=== PATIENT | male | born 1950 | race Caucasian/White ===

== ENCOUNTER 2018-03-05 23:45 | Emergency (ER) | payer MEDICARE, BC ==
--- NOTE | 2018-03-05 23:47 | EDM.PDOC ---
ED HPI GENERAL MEDICAL PROBLEM - General Stated Complaint: POSSIBLE STOKE Time Seen by Provider: 03/05/18 23:47 Source of Information: Reports: Patient, EMS, Family History Limitations: Reports: No Limitations - History of Present Illness INITIAL COMMENTS - FREE TEXT/NARRATIVE: 68-year-old male brought in by ambulance after a brief episode of dysarthria, lightheadedness and weakness. This occurred after having a few drinks after supper. He needed help with walking although he did not have any asymmetric weakness in one extremity or the other. He had no noticeable facial droop or double vision. In route his symptoms seem to have resolved. He just wants to go home. Onset: Sudden (About an hour and a half ago) Severity: Moderate Associated Symptoms: Reports: No Other Symptoms - Related Data Allergies Allergy/AdvReac Type Severity Reaction Status Date / Time No Known Allergies Allergy Verified 03/05/18 23:55 Home Meds: Home Meds Lisinopril [Prinivil] 5 mg PO DAILY 03/06/18 [History] Metoprolol Succinate [Toprol Xl] 50 mg PO DAILY 03/06/18 [History] atorvaSTATin [Lipitor] 40 mg PO BEDTIME 03/06/18 [History] ED ROS GENERAL - Review of Systems Review Of Systems: See Below Constitutional: Denies: Fever, Chills, Malaise HEENT: Reports: Other (Dysarthria) Respiratory: Denies: Shortness of Breath Cardiovascular: Denies: Chest Pain, Palpitations GI/Abdominal: Denies: Abdominal Pain, Nausea, Vomiting Skin: Reports: No Symptoms Neurological: Reports: Trouble Speaking. Denies: Confusion, Dizziness, Headache Psychiatric: Reports: No Symptoms ED EXAM, GENERAL - Physical Exam Exam: See Below Exam Limited By: No Limitations General Appearance: Alert, No Apparent Distress Eye Exam: Bilateral Eye: EOMI, PERRL Head: Atraumatic, Normocephalic Neck: Supple. No: Carotid Bruit Respiratory/Chest: No Respiratory Distress, Lungs Clear Cardiovascular: Regular Rate, Rhythm Extremities: Normal Inspection Neurological: Other (No reproducible weakness of the arms or legs, grasp strength is normal, facial muscles are symmetric). No: Inattentive, Confused, Disoriented Course - Vital Signs Last Recorded V/S: Last Vital Signs Temp 97.5 F 03/05/18 23:45 Pulse 75 03/06/18 00:01 Resp 20 03/06/18 00:01 BP 141/88 H 03/06/18 00:01 Pulse Ox 95 03/06/18 00:01 - Orders/Labs/Meds Orders: Active Orders 24 hr Category Date Time Status Head wo Cont [CT] Stat Exams 03/05/18 23:47 Taken Labs: Laboratory Tests 03/06/18 03/06/18 03/06/18 Range/Units 00:10 00:10 00:10 WBC 6.3 (4.5-11.0) K/uL RBC 4.46 (4.30-5.90) M/uL Hgb 13.7 (12.0-15.0) g/dL Hct 39.8 L (40.0-54.0) % MCV 89 (80-98) fL MCH 31 (27-31) pg MCHC 34 (32-36) % Plt Count 181 (150-400) K/uL Neut % (Auto) 51 (36-66) % Lymph % (Auto) 35 (24-44) % Pope % (Auto) 12 H (2-6) % Eos % (Auto) 3 (2-4) % Baso % (Auto) 1 (0-1) % PT 10.7 (9.5-12.0) sec INR 0.97 (0.80-1.20) Sodium 139 L (140-148) mmol/L Potassium 4.0 (3.6-5.2) mmol/L Chloride 106 (100-108) mmol/L Carbon Dioxide 24 (21-32) mmol/L Anion Gap 13.0 (5.0-14.0) mmol/L BUN 21 H (7-18) mg/dL Creatinine 1.0 (0.8-1.3) mg/dL Est Cr Clr Drug Dosing 75.44 mL/min Estimated GFR (MDRD) > 60 (>60) Glucose 86 (74-106) mg/dL Calcium 8.5 (8.5-10.1) mg/dL Total Bilirubin 0.3 (0.2-1.0) mg/dL AST 29 (15-37) U/L ALT 31 (12-78) U/L Alkaline Phosphatase 88 (46-116) U/L Total Protein 6.6 (6.4-8.2) g/dL Albumin 3.5 (3.4-5.0) g/dL Globulin 3.1 (2.3-3.5) g/dL Albumin/Globulin Ratio 1.1 L (1.2-2.2) Ethyl Alcohol mg/dL 03/06/18 Range/Units 00:10 WBC (4.5-11.0) K/uL RBC (4.30-5.90) M/uL Hgb (12.0-15.0) g/dL Hct (40.0-54.0) % MCV (80-98) fL MCH (27-31) pg MCHC (32-36) % Plt Count (150-400) K/uL Neut % (Auto) (36-66) % Lymph % (Auto) (24-44) % Pope % (Auto) (2-6) % Eos % (Auto) (2-4) % Baso % (Auto) (0-1) % PT (9.5-12.0) sec INR (0.80-1.20) Sodium (140-148) mmol/L Potassium (3.6-5.2) mmol/L Chloride (100-108) mmol/L Carbon Dioxide (21-32) mmol/L Anion Gap (5.0-14.0) mmol/L BUN (7-18) mg/dL Creatinine (0.8-1.3) mg/dL Est Cr Clr Drug Dosing mL/min Estimated GFR (MDRD) (>60) Glucose (74-106) mg/dL Calcium (8.5-10.1) mg/dL Total Bilirubin (0.2-1.0) mg/dL AST (15-37) U/L ALT (12-78) U/L Alkaline Phosphatase (46-116) U/L Total Protein (6.4-8.2) g/dL Albumin (3.4-5.0) g/dL Globulin (2.3-3.5) g/dL Albumin/Globulin Ratio (1.2-2.2) Ethyl Alcohol 197 mg/dL - Re-Assessments/Exams Free Text/Narrative Re-Assessment/Exam: 03/06/18 00:39 CBC, CMP and EtOH were obtained after a CT of the head was negative. 03/06/18 01:[address], the labs returned reassuring although his alcohol level was 0.197. Because the symptoms could well be getting attributed to EtOH, and were very atypical for acute ischemic cerebral event the patient was allowed to go home and will return tomorrow if symptoms are persistent after the alcohol wears off. Both he and his were comfortable with this plan. Departure - Departure Time of Disposition: 01:14 Disposition: Home, Self-Care 01 Condition: Good Clinical Impression: Dysarthria Alcohol intoxication Qualifiers: Complication of substance-induced condition: uncomplicated Qualified Code(s): F10.920 - Alcohol use, unspecified with intoxication, uncomplicated - Discharge Information Instructions: Transient Ischemic Attack, [id number] Referrals: PCP,None [Primary Care Provider] - Forms: ED Department Discharge Care Plan Goals: Recheck tomorrow if symptoms are persistent after the effects of alcohol wear off. Return sooner if worsening or concerns. - My Orders Last 24 Hours: My Active Orders 03/05/18 23:47 Head wo Cont [CT] Stat - Assessment/Plan Last 24 Hours: My Active Orders 03/05/18 23:47 Head wo Cont [CT] Stat
== END 2018-03-06 01:37 | disposition home or self-care (01) ==
LOC: JP.ED 23:45
DX: F10.120 Alcohol abuse with intoxication, uncomplicated (principal); Y90.6 Blood alcohol level of 120-199 mg/100 ml; Z79.899 Other long term (current) drug therapy
CPT/HCPCS: 36415; 70450; 80053; 85025; 85610; 99285; G0480

== ENCOUNTER 2022-11-08 02:19 | Inpatient (IN) | payer MEDICARE, BC ==
[2022-11-08 02:56] LABS: BASOPHILS ABSOLUTE AUTO 0.06 K/uL (0.00-0.10); BASOPHILS PERCENT AUTO 0.7 % (0.1-1.3); EOSINOPHILS ABSOLUTE AUTO 0.29 K/uL (0.00-0.40); EOSINOPHILS PERCENT AUTO 3.5 % (0.0-5.4); HEMATOCRIT 41.9 % (38.4-49.7); HEMOGLOBIN 14.4 g/dL (12.9-16.9); IMMATURE GRAN ABSOLUTE AUTO 0.03 K/uL (0.00-0.23); IMMATURE GRAN PERCENT AUTO 0.4 % (0.0-0.7); LYMPHOCYTES ABSOLUTE AUTO 1.42 K/uL (0.8-3.3); LYMPHOCYTES PERCENT AUTO 17.2 % (11.4-47.7); MEAN CORPUSCULAR HEMOGLOBIN 31.5 pg (31.6-35.5); MEAN CORPUSCULAR HGB CONC 34.4 g/dL (31.6-35.5); MEAN CORPUSCULAR VOLUME 91.7 fL (81.4-99.0); MONOCYTES ABSOLUTE AUTO 0.84 K/uL (0.20-0.90); MONOCYTES PERCENT AUTO 10.2 % (3.3-12.6); NEUTROPHILS ABSOLUTE AUTO 5.62 K/uL (1.0-7.6); PLATELET COUNT,PLT 179 K/uL (130-375); RED BLOOD CELL COUNT 4.57 M/uL (4.14-5.76); WHITE BLOOD CELL COUNT,WBC 8.3 K/uL (3.2-11.0)
[2022-11-08 02:57] LABS: CREATININE 1.3 mg/dL (0.7-1.3); EST CRCL DRUG DOSING (CG) 54.72 mL/min; ESTIMATED GFR 58 mL/min (>60)
[2022-11-08] MEDS ORDERED: Iopamidol 612 MG/ML 100 ML Bottle IV PRN (03:06)
[2022-11-08] MEDS ORDERED: Sodium Chloride 0.9% 10 ML Syringe FLUSH PRN (03:06)
[2022-11-08] MEDS ORDERED: Sodium Chloride 0.9% 50 ML IV SCH (03:15)
[2022-11-08 03:21] LABS: A/G RATIO 0.9 (1.2-2.2); ALANINE AMINOTRANSFERASE,ALT 29 U/L (12-78); ALBUMIN 3.5 g/dL (3.4-5.0); ALKALINE PHOSPHATASE 112 U/L (46-116); ANION GAP 14.7 mmol/L (5.0-14.0); ASPARTATE AMNIOTRANSFERASE,AST 26 U/L (15-37); BILIRUBIN TOTAL 0.5 mg/dL (0.2-1.0); BLOOD UREA NITROGEN,BUN 20 mg/dL (7-18); CALCIUM 9.3 mg/dL (8.5-10.1); CARBON DIOXIDE,CO2 26 mmol/L (21-32); CHLORIDE,CL 103 mmol/L (100-108); GLUCOSE RANDOM 156 mg/dL (74-106); MAGNESIUM 1.9 mg/dL (1.8-2.4); POTASSIUM,K 4.7 mmol/L (3.6-5.2); PROTEIN TOTAL,TP 7.3 g/dL (6.4-8.2); SODIUM,NA 139 mmol/L (140-148); TROPONIN I HIGH SENSITIVITY 10.5 pg/mL (<=60.3)
[2022-11-08] MEDS ORDERED: HYDROmorphone 0.5 MG/0.5 ML Syringe IVPUSH ONE (03:40)
[2022-11-08] MEDS ORDERED: HYDROmorphone 0.5 MG/0.5 ML Syringe IVPUSH PRN (07:41)
[2022-11-08] MEDS ORDERED: Sodium Chloride 0.9% 1,000 ML IV SCH (07:41)
[2022-11-08] MEDS ORDERED: Bisacodyl 5 MG Tab PO PRN (07:41)
[2022-11-08] MEDS ORDERED: Ondansetron 4 MG/2 ML SDV IV PRN (07:41)
[2022-11-08] MEDS ORDERED: Melatonin 3 MG Tab PO PRN (07:41)
[2022-11-08] MEDS ORDERED: Albuterol 0.083% 2.5 MG/3 ML Neb Soln NEB PRN (07:41)
[2022-11-08] MEDS ORDERED: Acetaminophen 325 MG Tab PO PRN (07:41)
[2022-11-08] MEDS ORDERED: LORazepam 2 MG/ML SDV IV PRN (07:41)
[2022-11-08] MEDS ORDERED: Ondansetron 4 MG Tab.DIS PO PRN (07:41)
[2022-11-08] MEDS: Lidocaine 4% 1 each Patch TOP SCH (08:12)
[2022-11-08] MEDS ORDERED: Lidocaine 4% 1 each Patch TOP SCH (09:00)
[2022-11-08] MEDS: Metoprolol Succinate 50 MG Tab.ER PO SCH (10:25)
[2022-11-08] MEDS: oxyCODONE 5 MG Tab PO PRN ×2 (10:25→18:08)
[2022-11-08] MEDS: Docusate Sodium 100 MG Cap PO SCH ×2 (10:25→20:46)
[2022-11-08] MEDS: Pantoprazole 40 MG Tab.CR PO SCH (10:25)
[2022-11-08] MEDS: Ketorolac 30 MG/ML SDV IVPUSH PRN ×2 (10:26→20:46)
[2022-11-08] MEDS: Enoxaparin 40 MG/0.4 ML Syringe SUBCUT SCH (10:30)
[2022-11-08 16:36] LABS: APPEARANCE,URINE CLEAR (CLEAR); BILIRUBIN,URINE SMALL (NEGATIVE); COLOR,URINE YELLOW (YELLOW); GLUCOSE,URINE NEGATIVE (NEGATIVE); KETONES,URINE TRACE mg/dL (NEGATIVE); LEUKOCYTE ESTERASE,URINE NEGATIVE (NEGATIVE); NITRITE,URINE NEGATIVE (NEGATIVE); OCCULT BLOOD,URINE NEGATIVE (NEGATIVE); PROTEIN,URINE 30 mg/dL (NEGATIVE); UROBILINOGEN,URINE 0.2 EU/dL (0.2-1.0)
[2022-11-08 16:53] LABS: AMORPHOUS SEDIMENT,URINE NOT SEEN; BACTERIA,URINE FEW; EPITHELIAL CELLS,URINE RARE; MUCUS,URINE RARE; RBC,URINE 0-5 (0-5); WBC,URINE 0-5 (0-5)
[2022-11-09] MEDS: oxyCODONE 5 MG Tab PO PRN ×3 (05:33→16:32)
[2022-11-09 05:42] LABS: HEMATOCRIT 40.4 % (38.4-49.7); HEMOGLOBIN 13.3 g/dL (12.9-16.9); MEAN CORPUSCULAR HEMOGLOBIN 31.1 pg (31.6-35.5); MEAN CORPUSCULAR HGB CONC 32.9 g/dL (31.6-35.5); MEAN CORPUSCULAR VOLUME 94.6 fL (81.4-99.0); RED BLOOD CELL COUNT 4.27 M/uL (4.14-5.76); WHITE BLOOD CELL COUNT,WBC 5.8 K/uL (3.2-11.0)
[2022-11-09 05:59] LABS: ALANINE AMINOTRANSFERASE,ALT 23 U/L (12-78); ALBUMIN 3.2 g/dL (3.4-5.0); ALKALINE PHOSPHATASE 96 U/L (46-116); ANION GAP 5.9 mmol/L (5.0-14.0); ASPARTATE AMNIOTRANSFERASE,AST 15 U/L (15-37); BILIRUBIN TOTAL 0.5 mg/dL (0.2-1.0); BLOOD UREA NITROGEN,BUN 34 mg/dL (7-18); CARBON DIOXIDE,CO2 30 mmol/L (21-32); CHLORIDE,CL 104 mmol/L (100-108); CREATININE 1.2 mg/dL (0.8-1.3); EST CRCL DRUG DOSING (CG) 59.28 mL/min; ESTIMATED GFR 63 mL/min (>60); GLUCOSE RANDOM 110 mg/dL (74-106); POTASSIUM,K 4.7 mmol/L (3.6-5.2); PROTEIN TOTAL,TP 6.5 g/dL (6.4-8.2); SODIUM,NA 140 mmol/L (140-148)
[2022-11-09] MEDS: Ketorolac 30 MG/ML SDV IVPUSH PRN ×2 (07:52→17:42)
[2022-11-09] MEDS: Pantoprazole 40 MG Tab.CR PO SCH (07:58)
[2022-11-09] MEDS: Metoprolol Succinate 50 MG Tab.ER PO SCH (09:38)
[2022-11-09] MEDS: Lidocaine 4% 1 each Patch TOP SCH (09:40)
[2022-11-09] MEDS: Enoxaparin 40 MG/0.4 ML Syringe SUBCUT SCH (09:40)
[2022-11-09] MEDS: Docusate Sodium 100 MG Cap PO SCH ×2 (09:40→20:55)
[2022-11-10] MEDS: oxyCODONE 5 MG Tab PO PRN ×3 (04:29→14:30)
[2022-11-10] MEDS: Ketorolac 30 MG/ML SDV IVPUSH PRN ×2 (04:29→15:22)
[2022-11-10] MEDS: Pantoprazole 40 MG Tab.CR PO SCH (07:58)
[2022-11-10] MEDS: Lidocaine 4% 1 each Patch TOP SCH (08:01)
[2022-11-10] MEDS: Enoxaparin 40 MG/0.4 ML Syringe SUBCUT SCH (08:02)
[2022-11-10] MEDS: Metoprolol Succinate 50 MG Tab.ER PO SCH (08:02)
[2022-11-10] MEDS: Docusate Sodium 100 MG Cap PO SCH ×2 (08:03→20:42)
[2022-11-11] MEDS: oxyCODONE 5 MG Tab PO PRN ×2 (02:46→08:23)
[2022-11-11] MEDS: Metoprolol Succinate 50 MG Tab.ER PO SCH (08:23)
[2022-11-11] MEDS: Docusate Sodium 100 MG Cap PO SCH (08:23)
[2022-11-11] MEDS: Pantoprazole 40 MG Tab.CR PO SCH (08:23)
[2022-11-11] MEDS: Enoxaparin 40 MG/0.4 ML Syringe SUBCUT SCH (08:23)
[2022-11-11] MEDS ORDERED: Lidocaine 5% 700 MG Patch TOP SCH (09:00)
== END 2022-11-11 11:58 | DRG 185 ==
LOC: JP.ED 02:19 → JP.MS 05:17 → UNDOADMIN 05:17 → JP.MS 11-10 19:00
PROVIDERS: ADMIT Hospitalist; ATTEND Hospitalist
DX: S22.42XA Multiple fractures of ribs, left side, initial encounter for closed fracture (principal); G89.29 Other chronic pain; G89.11 Acute pain due to trauma; M54.50 Low back pain, unspecified; I49.3 Ventricular premature depolarization; I25.10 Atherosclerotic heart disease of native coronary artery without angina pectoris; I10 Essential (primary) hypertension; I45.10 Unspecified right bundle-branch block; Z20.822 Contact with and (suspected) exposure to COVID-19; H91.90 Unspecified hearing loss, unspecified ear; W10.9XXA Fall (on) (from) unspecified stairs and steps, initial encounter; G47.33 Obstructive sleep apnea (adult) (pediatric); Z79.899 Other long term (current) drug therapy; W10.8XXA Fall (on) (from) other stairs and steps, initial encounter; Z79.82 Long term (current) use of aspirin; Y92.89 Other specified places as the place of occurrence of the external cause; Z79.01 Long term (current) use of anticoagulants; Z90.49 Acquired absence of other specified parts of digestive tract; Z95.1 Presence of aortocoronary bypass graft; Z95.5 Presence of coronary angioplasty implant and graft; Z87.891 Personal history of nicotine dependence
CPT/HCPCS: 36415; 71260; 74177; 80053; 82150; 83735; 84484; 85025; 93005; 96374; 99285; J1170; J3490 ×2; Q9967; 81001; 85027; 97161-GP; 97165-GO; 97530-GP; 97535-GO; A9270-GY; J1650; J1885; U0002

== ENCOUNTER 2024-02-29 09:20 | Inpatient (IN) | payer MEDICARE, BC ==
[2024-02-29 10:19] LABS: BASE EXCESS ARTERIAL 1.9 mm/L; BICARBONATE,ARTERIAL 25.1 mmol/L (22.0-26.0); CARBOXYHEMOGLOBIN 1.1 % (0.0-1.6); METHEMOGLOBIN 0.5 %; O2 SATURATION ARTERIAL 94.1 % (95.0-98.0); OXYHEMOGLOBIN 92.6 %; PCO2 ARTERIAL 36.4 mmHg (35.0-42.0); PO2 ARTERIAL 75.9 mmHg (75.0-100.0); TOTAL HEMOGLOBIN 13.9 g/dL (13.5-18.0)
[2024-02-29 10:19] LABS: BASOPHILS PERCENT AUTO 0.1 % (0.1-1.3); HEMATOCRIT 38.6 % (38.4-49.7); HEMOGLOBIN 13.6 g/dL (12.9-16.9); IMMATURE GRAN ABSOLUTE AUTO 0.03 K/uL (0.00-0.23); IMMATURE GRAN PERCENT AUTO 0.4 % (0.0-0.7); LYMPHOCYTES ABSOLUTE AUTO 0.87 K/uL (0.8-3.3); LYMPHOCYTES PERCENT AUTO 12.3 % (11.4-47.7); MEAN CORPUSCULAR HEMOGLOBIN 31.3 pg (31.6-35.5); MEAN CORPUSCULAR HGB CONC 35.2 g/dL (31.6-35.5); MEAN CORPUSCULAR VOLUME 88.7 fL (81.4-99.0); MONOCYTES ABSOLUTE AUTO 0.61 K/uL (0.20-0.90); MONOCYTES PERCENT AUTO 8.6 % (3.3-12.6); NEUTROPHILS ABSOLUTE AUTO 5.58 K/uL (1.0-7.6); NEUTROPHILS PERCENT AUTO 78.6 % (40.0-78.1); PLATELET COUNT,PLT 158 K/uL (130-375); RED BLOOD CELL COUNT 4.35 M/uL (4.14-5.76); WHITE BLOOD CELL COUNT,WBC 7.1 K/uL (3.2-11.0)
[2024-02-29 10:22] LABS: BASOPHILS ABSOLUTE AUTO 0.01 K/uL (0.00-0.10)
[2024-02-29 10:40] LABS: A/G RATIO 0.8 (1.2-2.2); ALANINE AMINOTRANSFERASE,ALT 49 U/L (12-78); ALBUMIN 3.3 g/dL (3.4-5.0); ALKALINE PHOSPHATASE 97 U/L (46-116); ASPARTATE AMNIOTRANSFERASE,AST 24 U/L (15-37); BILIRUBIN TOTAL 0.4 mg/dL (0.2-1.0); BLOOD UREA NITROGEN,BUN 21 mg/dL (7-18); CALCIUM 9.8 mg/dL (8.5-10.1); CARBON DIOXIDE,CO2 29 mmol/L (21-32); CHLORIDE,CL 103 mmol/L (100-108); CREATININE 1.2 mg/dL (0.8-1.3); EST CRCL DRUG DOSING (CG) 61.84 mL/min; ESTIMATED GFR 63 mL/min (>60); GLUCOSE RANDOM 125 mg/dL (74-106); POTASSIUM,K 4.1 mmol/L (3.6-5.2); PROTEIN TOTAL,TP 7.3 g/dL (6.4-8.2); SODIUM,NA 139 mmol/L (140-148)
[2024-02-29 10:47] LABS: ANION GAP 11.1 mmol/L (5.0-14.0)
[2024-02-29] MEDS: cefTRIAXone 2 GM in Sodium Chloride 0.9% 50 ML IV ONE (13:09)
[2024-02-29] MEDS ORDERED: LORazepam 2 MG/ML SDV IVPUSH PRN (14:22)
[2024-02-29] MEDS ORDERED: Sennosides/Docusate Sodium 50-8.6 MG Tab PO PRN (14:22)
[2024-02-29] MEDS ORDERED: Magnesium Hydroxide 400 MG/5 ML Susp 30 ML Cup PO PRN (14:22)
[2024-02-29] MEDS ORDERED: Ondansetron 4 MG Tab.DIS PO PRN (14:22)
[2024-02-29] MEDS ORDERED: Ondansetron 4 MG/2 ML SDV IV PRN (14:22)
[2024-02-29] MEDS ORDERED: Ibuprofen 600 MG Tab PO PRN (14:22)
[2024-02-29 15:06] LABS: APPEARANCE,URINE CLEAR (CLEAR); BILIRUBIN,URINE NEGATIVE (NEGATIVE); COLOR,URINE YELLOW (YELLOW); GLUCOSE,URINE NEGATIVE (NEGATIVE); KETONES,URINE NEGATIVE (NEGATIVE); LEUKOCYTE ESTERASE,URINE NEGATIVE (NEGATIVE); NITRITE,URINE NEGATIVE (NEGATIVE); OCCULT BLOOD,URINE TRACE-INTACT (NEGATIVE); PROTEIN,URINE TRACE mg/dL (NEGATIVE); UROBILINOGEN,URINE 0.2 EU/dL (0.2-1.0)
[2024-02-29 15:13] LABS: AMORPHOUS SEDIMENT,URINE NOT SEEN; BACTERIA,URINE NOT SEEN; EPITHELIAL CELLS,URINE NOT SEEN; MUCUS,URINE RARE; RBC,URINE 0-5 (0-5); WBC,URINE 0-5 (0-5)
[2024-02-29] MEDS: guaiFENesin 600 MG Tab.ER PO SCH (16:20)
[2024-02-29] MEDS: Acetaminophen 325 MG Tab PO PRN (16:22)
[2024-02-29] MEDS ORDERED: Iopamidol 612 MG/ML 100 ML Bottle IV PRN (16:46)
[2024-02-29] MEDS ORDERED: Sodium Chloride 0.9% 10 ML Syringe FLUSH PRN (16:46)
[2024-02-29] MEDS: Sodium Chloride 0.9% 80 ML IV SCH (19:10)
[2024-02-29] MEDS: Iopamidol 755 Mg/ML 100 ML Bottle IV SCH (19:10)
[2024-02-29] MEDS: atorvaSTATin 20 MG Tab PO SCH (20:22)
[2024-02-29] MEDS: Aspirin 81 MG Tab.EC PO SCH (20:22)
[2024-02-29] MEDS: Metoprolol Succinate 50 MG Tab.ER PO SCH (20:22)
[2024-02-29] MEDS: Apixaban 5 MG Tab PO SCH (20:22)
[2024-02-29] MEDS ORDERED: Non-Formulary Medication 1 Each (Atorvastatin [Lipitor] 80 MG Tablet) PO SCH (21:00)
[2024-02-29] MEDS ORDERED: Non-Formulary Medication 1 Each (Aspirin [Aspirin] 325 MG Tablet) PO SCH (21:00)
[2024-02-29] MEDS ORDERED: Non-Formulary Medication 1 Each (Metoprolol Succinate [Toprol Xl 100mg] 100 MG Tab.Er) PO SCH (21:00)
[2024-03-01 04:55] LABS: HEMATOCRIT 37.7 % (38.4-49.7); HEMOGLOBIN 13.5 g/dL (12.9-16.9); MEAN CORPUSCULAR HEMOGLOBIN 31.3 pg (31.6-35.5); MEAN CORPUSCULAR HGB CONC 35.8 g/dL (31.6-35.5); MEAN CORPUSCULAR VOLUME 87.5 fL (81.4-99.0); RED BLOOD CELL COUNT 4.31 M/uL (4.14-5.76); WHITE BLOOD CELL COUNT,WBC 6.6 K/uL (3.2-11.0)
[2024-03-01 05:20] LABS: A/G RATIO 0.8 (1.2-2.2); ALANINE AMINOTRANSFERASE,ALT 39 U/L (12-78); ALBUMIN 3.1 g/dL (3.4-5.0); ALKALINE PHOSPHATASE 93 U/L (46-116); ASPARTATE AMNIOTRANSFERASE,AST 29 U/L (15-37); BILIRUBIN TOTAL 0.6 mg/dL (0.2-1.0); BLOOD UREA NITROGEN,BUN 15 mg/dL (7-18); CALCIUM 9.6 mg/dL (8.5-10.1); CARBON DIOXIDE,CO2 26 mmol/L (21-32); CHLORIDE,CL 103 mmol/L (100-108); EST CRCL DRUG DOSING (CG) 68.98 mL/min; ESTIMATED GFR 78 mL/min (>60); GLUCOSE RANDOM 117 mg/dL (74-106); POTASSIUM,K 4.2 mmol/L (3.6-5.2); SODIUM,NA 139 mmol/L (140-148)
[2024-03-01 05:28] LABS: ANION GAP 14.2 mmol/L (5.0-14.0)
[2024-03-01] MEDS: Lactobacillus Rhamnosus GG (Probiotic) Cap PO SCH (08:09)
[2024-03-01] MEDS: cefTRIAXone 2 GM in Sodium Chloride 0.9% 50 ML IV SCH (13:36)
[2024-03-01 17:41] LABS: BASE EXCESS ARTERIAL -0.1 mm/L; BICARBONATE,ARTERIAL 22.7 mmol/L (22.0-26.0); CARBOXYHEMOGLOBIN 1.5 % (0.0-1.6); METHEMOGLOBIN 0.6 %; O2 SATURATION ARTERIAL 94.4 % (95.0-98.0); OXYHEMOGLOBIN 92.4 %
[2024-03-02] MEDS: Acetaminophen/HYDROcodone 325-5 MG Tab PO PRN (02:57)
[2024-03-02 05:29] LABS: BASOPHILS PERCENT AUTO 0.2 % (0.1-1.3); EOSINOPHILS ABSOLUTE AUTO 0.08 K/uL (0.00-0.40); HEMATOCRIT 37.2 % (38.4-49.7); HEMOGLOBIN 13.2 g/dL (12.9-16.9); IMMATURE GRAN ABSOLUTE AUTO 0.04 K/uL (0.00-0.23); IMMATURE GRAN PERCENT AUTO 0.5 % (0.0-0.7); LYMPHOCYTES ABSOLUTE AUTO 1.03 K/uL (0.8-3.3); LYMPHOCYTES PERCENT AUTO 12.7 % (11.4-47.7); MEAN CORPUSCULAR HEMOGLOBIN 30.9 pg (31.6-35.5); MEAN CORPUSCULAR HGB CONC 35.5 g/dL (31.6-35.5); MEAN CORPUSCULAR VOLUME 87.1 fL (81.4-99.0); MONOCYTES ABSOLUTE AUTO 0.85 K/uL (0.20-0.90); MONOCYTES PERCENT AUTO 10.5 % (3.3-12.6); NEUTROPHILS ABSOLUTE AUTO 6.06 K/uL (1.0-7.6); NEUTROPHILS PERCENT AUTO 75.1 % (40.0-78.1); PLATELET COUNT,PLT 170 K/uL (130-375); RED BLOOD CELL COUNT 4.27 M/uL (4.14-5.76); WHITE BLOOD CELL COUNT,WBC 8.1 K/uL (3.2-11.0)
[2024-03-02 05:40] LABS: BASOPHILS ABSOLUTE AUTO 0.02 K/uL (0.00-0.10)
[2024-03-02 05:53] LABS: A/G RATIO 0.7 (1.2-2.2); ALANINE AMINOTRANSFERASE,ALT 33 U/L (12-78); ALBUMIN 2.8 g/dL (3.4-5.0); ALKALINE PHOSPHATASE 87 U/L (46-116); ASPARTATE AMNIOTRANSFERASE,AST 21 U/L (15-37); BILIRUBIN TOTAL 0.5 mg/dL (0.2-1.0); BLOOD UREA NITROGEN,BUN 18 mg/dL (7-18); CALCIUM 9.5 mg/dL (8.5-10.1); CARBON DIOXIDE,CO2 27 mmol/L (21-32); CHLORIDE,CL 104 mmol/L (100-108); EST CRCL DRUG DOSING (CG) 68.98 mL/min; ESTIMATED GFR 78 mL/min (>60); GLUCOSE RANDOM 117 mg/dL (74-106); POTASSIUM,K 4.3 mmol/L (3.6-5.2); PROTEIN TOTAL,TP 6.7 g/dL (6.4-8.2); SODIUM,NA 139 mmol/L (140-148)
[2024-03-02 05:55] LABS: ANION GAP 12.3 mmol/L (5.0-14.0)
[2024-03-02] MEDS: Levofloxacin/Dextrose 5%-Water 750 MG in Premix Bag 1 BAG IV SCH (13:08)
[2024-03-07] MEDS ORDERED: Apixaban 5 MG Tab PO SCH (21:00)
== END 2024-03-02 14:32 | DRG 193 ==
LOC: JP.ED 09:20 → JP.MS 12:27 → OBSVTOIN 03-01 09:11
PROVIDERS: ADMIT Hospitalist; ATTEND Hospitalist
DX: J18.9 Pneumonia, unspecified organism (principal); I26.99 Other pulmonary embolism without acute cor pulmonale; R41.0 Disorientation, unspecified; R53.1 Weakness; U07.1 COVID-19; Z86.16 Personal history of COVID-19; I25.10 Atherosclerotic heart disease of native coronary artery without angina pectoris; I10 Essential (primary) hypertension; G47.30 Sleep apnea, unspecified; G89.29 Other chronic pain; M54.9 Dorsalgia, unspecified; H91.90 Unspecified hearing loss, unspecified ear; Z95.5 Presence of coronary angioplasty implant and graft; Z95.1 Presence of aortocoronary bypass graft; Z90.49 Acquired absence of other specified parts of digestive tract; Z79.82 Long term (current) use of aspirin; Z79.01 Long term (current) use of anticoagulants; Z98.890 Other specified postprocedural states; Z79.899 Other long term (current) drug therapy; Z87.891 Personal history of nicotine dependence
CPT/HCPCS: 36415 ×2; 36600; 70450 ×2; 71045 ×2; 71275 ×2; 80053 ×2; 81001; 82803; 83605; 84145; 85025; 85027; 85379; 96365; 99285; A9270 ×10; J0696; J3490 ×2; Q9967; 82140; 96376; 99223; 99233; 99239; G0378; J1956